=== PATIENT | male | born 2000 | race Caucasian/White ===

== ENCOUNTER 2025-01-30 14:13 | Emergency (ER) | payer MEDICAID, SELFPAY ==
--- NOTE | 2025-01-30 14:28 | PC.NURSE ---
[employer] OFFICER IN ROOM TALKING WITH PT
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
[2025-01-30 14:38] VITALS: BMI 24.5
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
[2025-01-30 14:43] VITALS: BP 151/95; PULSE 48; RESP 15; O2SAT 100
--- NOTE | 2025-01-30 14:44 | EKG_ITS ---
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
--- NOTE | 2025-01-30 14:47 | PC.NURSE ---
PT COMING FROM ED [facility]; PT REPORTS, I'M HEARING VOICES THAT TELLS ME TO HURT OTHER PEOPLE AND TO SECLUDE MYSELF. I ALSO SEE THINGS; IN THE DAYTIME, I SEE BUGS THAT AREN'T REALLY THERE, LIKE SPIDERS, AND IN THE NIGHT TIME, I SEE SHADOWY FIGURES THAT AREN'T REALLY THERE. PT REPORTS HAVING INTRUSIVE THOUGHTS ALL HIS LIFE BUT THAT AUDITORY HALLUCINATIONS ARE NEW AND HAVE BEEN OCCURING X1 MONTH SINCE STARTING [employer]. PT DENIES AH/VH AT THIS TIME AND DENIES SI/HI AT THIS TIME WELL. PMH SEIZURES, ANXIETY, BIPOLAR TYPE 1.
== END 2025-01-30 16:02 ==
LOC: SERX 16:25
PROVIDERS: Emergency Provider Family Medicine
DX: Z02.89 Encounter for other administrative examinations (principal); S01.412A Laceration without foreign body of left cheek and temporomandibular area, initial encounter; R00.1 Bradycardia, unspecified; W26.0XXA Contact with knife, initial encounter
CPT/HCPCS: 12011; 93005; 99283